=== PATIENT | male | born 1995 | race Caucasian/White ===

== ENCOUNTER 2016-10-14 12:51 | Emergency (ER) | payer OTHER ==
[2016-10-14] MEDS ORDERED: Aspirin Low Dose CHEW TAB* 81 MG PO ONE (13:43)
[2016-10-14] MEDS ORDERED: NS 0.9% 1000 ML* 1,000 ML IV ONE ×4 (13:48→17:31)
[2016-10-14] MEDS ORDERED: Ondansetron INJ* 2 MG/ML VIAL IV ONE ×2 (13:48→14:55)
[2016-10-14 14:03] LABS: Hematocrit 52 % (42-52); Hemoglobin 17.8 g/dl (14.0-18.0); Mean Corpuscular HGB Conc 34 g/dl (31-36); Mean Corpuscular Hemoglobin 31 pg (27-31); Mean Corpuscular Volume 90 fL (80-94); Mean Platelet Volume 8 um3 (7.4-10.4); Red Blood Count 5.75 10^6/ul (4.0-5.4); Red Cell Distribution Width 13 % (10.5-15)
[2016-10-14 14:20] LABS: Albumin 5.1 g/dL (3.2-5.2); BUN/Creatinine Ratio 14.3 (8-20); C Reactive Protein 121.06 mg/L (< 5.00); Calcium 10.4 mg/dL (8.6-10.3); EGFR African American 98.3 (>60); EGFR Non-African American 76.4 (>60); Globulin 3.6 g/dL (2-4); Magnesium 1.8 mg/dL (1.9-2.7); Potassium 3.6 mmol/L (3.5-5.0); Total Bilirubin 1.2 mg/dL (0.2-1.0); Total Protein 8.7 g/dL (6.4-8.9)
--- NOTE | 2016-10-14 14:28 | RAD ---
INDICATION: Nausea vomiting and diarrhea. COMPARISON: There are no prior studies available for comparison. TECHNIQUE: Supine and upright views of the abdomen were obtained. FINDINGS: The small bowel and colon appear nondistended. No free intraperitoneal air is seen. There are calcific densities present in the right lower quadrant and pelvis likely representing debris within the bowel. There is a mild lumbar scoliosis convex toward the left side. No other focal osseous abnormalities are seen. IMPRESSION: NO EVIDENCE FOR ACUTE FINDING.
[2016-10-14] MEDS ORDERED: Famotidine IV* 10 MG/ML 2 ML (20 mg) IV SLOW PU ONE (15:09)
[2016-10-14] MEDS ORDERED: Metoclopramide IV* 5 MG/ML 2 ML VIAL IV ONE (17:02)
[2016-10-14 18:17] VITALS: BP 115/68
[2016-10-14] MEDS ORDERED: Famotidine TAB* 20 MG PO ONE (18:27)
[2016-10-14] MEDS ORDERED: Metoclopramide TAB* 10 MG PO ONE (18:27)
--- NOTE | 2016-10-14 22:04 | ED ---
Anita Hartman Erika, scribed for Timbo Simpson MD on 10/14/16 at 1354 . GI/ HPI - HPI Summary HPI Summary: Patient is a 21-year-old male presenting to the ED with a CC of nausea, vomiting , and diarrhea starting at 01:30 on 10/13/2016. He reports that nausea and vomiting are aggravated by movement. Associated symptoms include chills and epigastric abdominal pain. Pt denies fever. Patient is a student at [employer]. He denies recent travel or Abx use. Pt denies and PMSHx. - History of Current Complaint Chief Complaint: EDNauseaVomitDiarrh Time Seen by Provider: 10/14/16 13:42 Stated Complaint: VOMITING Hx Obtained From: Patient Onset/Duration: Started Days Ago, Atraumatic, Still Present Timing: Intermittent Severity: Moderate Pain Intensity: 2 Location of Pain: Epigastric Associated Signs and Symptoms: Positive: Nausea, Vomiting, Diarrhea, Chills. Negative: Fever Aggravating Factor(s): Movement Alleviating Factor(s): Nothing - Allergy/Home Medications Allergies/Adverse Reactions: Allergies Allergy/AdvReac Type Severity Reaction Status Date / Time No Known Allergies Allergy Verified 10/14/16 13:38 PMH/Surg Hx/FS Hx/Imm Hx Previously Healthy: Yes Endocrine/Hematology History: Denies: Hx Diabetes Cardiovascular History: Denies: Hx Myocardial Infarction Infectious Disease History: No Infectious Disease History: Denies: Traveled Outside the [place] in Last 30 Days - Family History Known Family History: Positive: Cardiac Disease, Diabetes - Social History Occupation: Student - [employer] Lives: With Family Alcohol Use: Weekly Hx Substance Use: Yes Substance Use Type: Reports: Marijuana Hx Tobacco Use: No Smoking Status (MU): Never Smoked Tobacco Review of Systems Positive: Chills. Negative: Fever Positive: Abdominal Pain, Vomiting, Diarrhea, Nausea All Other Systems Reviewed And Are Negative: Yes Physical Exam - Summary Physical Exam Summary: VITAL SIGNS: Reviewed. GENERAL: Patient is a well developed and nourished male who is lying comfortable in the stretcher. Patient is not in any acute respiratory distress. HEAD AND FACE: Normocephalic and atraumatic. EYES: PERRLA, EOMI x 2, No injected conjunctiva. EARS: Hearing grossly intact. Ear canals and tympanic membranes are WNL. MOUTH: Oropharynx within normal limits. NECK: Supple, trachea is midline, no adenopathy, no JVD. CHEST: Symmetric, no tenderness at palpation LUNGS: Clear to auscultation bilaterally. No wheezing or crackles. CVS: RRR,, S1 and S2 present, no murmurs or gallops appreciated. ABDOMEN: Soft, non-tender. No signs of distention. Positive bowel sounds. No rebound no guarding, and no masses palpated. No abdominal bruit or pulsations. EXTREMITIES: FROM in all major joints, no edema, no cyanosis or clubbing. NEURO: Alert and oriented x 3. No acute neurological deficits. Speech is normal. SKIN: Dry and warm Triage Information Reviewed: Yes Vital Signs On Initial Exam: Initial Vitals Temp Pulse Resp BP Pulse Ox 98.0 F 85 15 125/88 100 10/14/16 12:55 10/14/16 12:55 10/14/16 12:55 10/14/16 12:55 10/14/16 12:55 Vital Signs Reviewed: Yes Diagnostics - Vital Signs Vital Signs Temp Pulse Resp BP Pulse Ox 10/14/16 12:55 98.0 F 85 15 125/88 100 - Laboratory Result Diagrams: 10/14/16 13:45 10/14/16 13:45 Lab Statement: Any lab studies that have been ordered have been reviewed, and results considered in the medical decision making process. - Radiology Abd XR Radiology Interpretation Completed By: Radiologist - IMPRESSION: NO EVIDENCE FOR ACUTE FINDING. GIGU Course/Dx - Course Assessment/Plan: Patient is a 21-year-old male presenting to the ED with a CC of nausea, vomiting, and diarrhea starting at 01:30 on 10/13/2016. He reports that nausea and vomiting are aggravated by movement. Associated symptoms include chills and epigastric abdominal pain. Pt denies fever. Blood work shows a WBC of 16.0, chloride of 94, creatinine of 1.19, glucose of 164, calcium of 10.4, and CRP of 121. XR abdomen shows no evidence of acute pathology. In the ED course, pt was hydrated with 3L of IV fluids, and given Zofran and Reglan for the nausea and vomiting. He was given Pepcid for the epigastric discomfort. After his medications were given, patient is feeling better, and is tolerating PO without any nausea or vomiting, and his epigastric discomfort has resolved. Pt reports he is feeling better. He will be discharged home with follow up from his PCP. He was recommended to continue with the BRAT diet and to continue with good hydration. He will be given a prescription for Pepcid and Reglan. He is hemodynamically stable and A&Ox3. I discussed all the findings and test results with the patient. Patient was instructed to return to the emergency room immediately if any of the symptoms return or worsens. They were explained the possibility of an early abdominal pathology which was not detected at this time despite the physical exam and testing. They understand and agree. Abdominal exam before discharge: Soft, NT. No signs of distention. BS present. No rebound no guarding, and no masses palpated. Patient is alert and oriented and hemodynamically stable. Patient is to follow up with primary care physician in the next 2 to 3 days. Patient agree and understands. - Diagnoses Differential Diagnoses - Male: Colitis, Dehydration, Diarrhea, Gastritis, Gastroenteritis (Viral), Gerd Provider Diagnoses: Nausea & vomiting, Diarrhea Discharge - Discharge Plan Condition: Stable Disposition: HOME Prescriptions: Famotidine TAB* [Pepcid TAB*] 20 mg PO BID #20 tab Metoclopramide TAB* [Reglan TAB*] 10 mg PO Q6H PRN #10 tab PRN Reason: Vomiting Patient Education Materials: Acute Nausea and Vomiting (ED), Acute Diarrhea (ED ) Referrals: [facility] NINA Bustillo [Primary Care Provider] - Additional Instructions: Please continue on a BRAT diet and hydrate well. The documentation as recorded by the Anita faria Erika accurately reflects the service I personally performed and the decisions made by me, Timbo Simpson MD.
== END 2016-10-14 18:30 | disposition home or self-care (01) ==
LOC: ED 12:51
DX: R11.2 Nausea with vomiting, unspecified (principal); R19.7 Diarrhea, unspecified
CPT/HCPCS: 36415; 74020; 80053; 82150; 83690; 83735; 85025; 86140; 96360; 96374; 96375; 96376; 99283; A9270-GY; J2405; J2765